=== PATIENT | female | born 2005 | race Caucasian/White ===

== ENCOUNTER 2023-01-01 15:24 | Emergency (ER) | payer OTHER, SELFPAY ==
--- NOTE | ~2023-01-01 | XR_ITS ---
EXAMINATION: XR chest 2V 01/01/2023 16:27 INDICATION: Shortness of breath. Diminished breath sounds. Low oxygen saturation. PROCEDURE: 2 view chest COMPARISON: No prior studies for comparison. FINDINGS: The lungs are clear. The cardiomediastinal silhouette is within normal limits. There are no pleural effusions. There is no pneumothorax suspected. IMPRESSION: 1: NO ACUTE CARDIOPULMONARY DISEASE. Reviewed, dictated and finalized at location A.
[2023-01-01 15:30] VITALS: BP 144/50; PULSE 121; RESP 22; TEMP 36.6; O2SAT 96
--- NOTE | 2023-01-01 15:32 | ED.URI ---
HPI - URI/Sore Throat General Chief Complaint: Upper Respiratory Infection Stated Complaint: sore throat/chest congestion Source: patient, family and RN notes reviewed History of Present Illness HPI Narrative: 17 yo F presents to urgent care with mom at side. Pt states she has been congested and coughing x 3 days. Pt reports shortness of breath and her mom states she is panting for air sometimes. Pt states she has been stuffy for the last month but her congestion worsened these last 3 days. Reports a sore throat and chest pain with deep inhalation. Pt denies any fevers, chills, vomiting, diarrhea, ear pain, leg pain or swelling. Pt admits to vaping and smoking an occasional cigarette. Pt took ibuprofen at home for her symptoms. Related Data Home Medications Medication Instructions Recorded Confirmed No Home Medications 01/01/23 01/01/23 Allergies Allergy/AdvReac Type Severity Reaction Status Date / Time No Known Allergies Allergy Unknown Verified 01/01/23 15:40 Review of Systems Review of Systems: Pertinent positives and pertinent negatives per HPI. PMFSH Comments At the time of my signature, I reviewed and agree with the nursing past medical, surgical, social, and family history. There is no relevant family history pertinent to the patient complaint. Exam Narrative: GENERAL: This is a well-nourished, well-developed patient, in no apparent distress. HEAD: normocephalic, atraumatic. EYES: Sclera clear/white. Vision is grossly intact. EARS: External ears normal, auditory canals clear and without drainage. Hearing grossly intact. NOSE: External nose normal with no obvious nasal discharge, nares without redness, no rhinorrhea. THROAT: Mucous membranes moist, posterior pharynx clear. NECK: Neck supple, non-tender without lymphadenopathy, masses or thyromegaly. CARDIOVASCULAR: Tachycardia RESPIRATORY: Diminished breath sounds bilaterally. pt talking in complete, but short, sentences. Pt in semi-tripod position. GASTROINTESTINAL: Abdomen soft, non-tender, nondistended. Bowel sounds are active. No hepato-splenomegaly, or palpable masses. No guarding. SKIN: warm, intact with no suspicious lesions or rash, good texture and turgor. NEURO: awake, alert, and oriented to person, place and time. There were no obvious focal neurologic abnormalities. EXTREMITIES: No clubbing, cyanosis, or edema. No joint tenderness, effusion, or edema noted. BACK: Nontender without deformity or crepitus. No flank tenderness. Course Course Level of Care: Express Care Visit Vital Signs Vital signs: Vital Signs Temperature 97.9 F 01/01/23 15:30 Pulse Rate 121 H 01/01/23 15:30 Respiratory Rate 22 H 01/01/23 15:30 Blood Pressure 144/50 H 01/01/23 15:30 Pulse Oximetry 96 01/01/23 15:30 Oxygen Delivery Room Air 01/01/23 15:30 Temperature 97.9 F 01/01/23 15:30 Pulse Rate 121 H 01/01/23 15:30 Respiratory Rate 22 H 01/01/23 15:30 Blood Pressure 144/50 H 01/01/23 15:30 Pulse Oximetry 96 01/01/23 15:30 Oxygen Delivery Room Air 01/01/23 15:30 Reviewed MDM - URI/Sore Throat MDM Narrative Medical decision making narrative: Discussed with pt the reasons for recommendation for ER transfer. PE needs to be ruled out due to pt's tachycardia and persistent SOB. Pt states no change in respiratory status post respiratory treatment and steroids. Pt reluctantly agreed to go with mom at side. Pt was informed of dangers of leaving AMA if she has a PE. PERC score=1 Report called to [facility] and Yulissa WILDER accepted pt for Dr. Little. Pt is stable. Lab Data Labs: Strep Screen Presumptive Negative *(Reference Range: Negative)* Imaging Data Radiologist's impression: [facility] [address] [place] [address] XRay Report Signed Patient: Gilda Bess : 2005 MR#: [id number]
[2023-01-01] MEDS: predniSONE 20 MG TABLET 60 MG PO (15:59)
[2023-01-01] MEDS: IPRATROPIUM BR 0.02% INH SOLN 0.5 MG/2.5 ML VIAL INHALATION (16:00)
[2023-01-01] MEDS: ALBUTEROL SULFATE NEB 2.5 MG/3 ML INH INHALATION (16:00)
--- NOTE | 2023-01-01 16:20 | PC.NURSE ---
AMBULATED TO XRAY AND SPO2=94% WITH HEART RATE =128/MINUTE
== END 2023-01-01 16:59 | disposition short-term general hospital (02) ==
PROVIDERS: Emergency Provider Nurse Practitioner Family; PCP Pediatrics
DX: R06.00 Dyspnea, unspecified (principal); R00.0 Tachycardia, unspecified
CPT/HCPCS: 71046; 87081; 87880; 94640; 99213; G0463; J7512

== ENCOUNTER 2023-01-01 17:50 | Emergency (ER) | payer OTHER, SELFPAY ==
[2023-01-01] VITALS (14 sets, daily range): BP systolic 128; BP diastolic 71–74; PULSE 101–126; RESP 20–27; TEMP 37.5; O2SAT 92–97
--- NOTE | 2023-01-01 18:05 | ED.SOB ---
HPI - SOB/Dyspnea General Chief Complaint: Shortness of Breath/Dyspnea Stated Complaint: rule out blood clot Source: patient Mode of arrival: ambulatory Limitations: no limitations History of Present Illness HPI Narrative: 17-year-old female, smoker/ vapes/ marijuana user with no significant past medical history presents to the ER with 3 day history of -- cough with mucopurulent sputum -- shortness of breath -- audible wheezing no fever or chills no chest pain no leg swelling no prior history of bronchitis /asthma has nasal congestion/ sore throat patient is being referred by Urgent Care and with [facility]. She had an x-ray of the chest which was unremarkable. She had a negative strep test. MD elicited complaint: shortness of breath and cough Onset (ago): day(s) ( symptoms started 3 days ago) Context: recent illness Severity: moderate Exacerbating factors: nothing Relieving factors: nothing Associated symptoms: cough, wheezing, sputum production, diaphoresis and chest congestion Treatment prior to arrival: none Related Data Allergies Allergy/AdvReac Type Severity Reaction Status Date / Time No Known Allergies Allergy Unknown Verified 01/01/23 15:40 Review of Systems Review of Systems: All systems reviewed & are unremarkable except as noted in HPI and below Constitutional: Constitutional: Reports as per HPI and Reports no additional constitutional complaints Eyes: Eyes: Reports as per HPI and Reports no additional eye complaints ENT: Reports system reviewed and no additional complaints, except as documented and Reports as per HPI Cardiovascular: Cardiovascular: Reports as per HPI and Reports no additional cardiovascular complaints Respiratory: Respiratory: Reports as per HPI, Reports no additional respiratory complaints, Reports chest congestion, Reports cough, Reports dyspnea and Reports wheezing Gastrointestinal: Gastrointestinal: Reports as per HPI Comments: no abdominal pain. No vomiting or diarrhea Musculoskeletal: Musculoskeletal: Reports no additional musculoskeletal complaints and Reports as per HPI Integumentary/Breasts: Skin/Breast: Reports system reviewed and no additional complaints, except as docu and Reports as per HPI Neurologic: Reports system reviewed and no additional complaints, except as documented and Reports as per HPI Psychiatric: Psychiatric: Reports no additional psychiatric complaints and Reports as per HPI Endocrine: Endocrine: Reports no additional endocrine complaints and Reports as per HPI Hematologic/Lymphatic: Hematologic/Lymphatic: Reports no additional hematologic/lymphatic complaints and Reports as per HPI Allergic/Immunologic: Allergic/Immunologic: Reports no additional allergic/immunologic complaints and Reports as per HPI [facility] Social History Social History (Updated 01/01/23 @ 18:20 by Ebenezer Little MD) Social History: Smoker. vapes. marijuana user Exam Const: General: diaphoretic Nutritional Appearance: obese Orientation/consciousness: patient oriented x3 Limitations: no limitations HENMT: Head: normal to inspection Ears: external ears normal Face/Nose/Sinus: Normal external nose present Face and sinus: normal facial exam Throat: posterior oropharynx normal Eyes: Conjunctivae: conjunctivae normal Pupils: Equal, round and reactive pupils present EOM: EOMs intact bilaterally Direct Ophthalmoscopy: no photophobia Neck: Neck: normal visual inspection, no lymphadenopathy and no meningeal signs Chest: Chest palpation & inspection: normal inspection of the chest Resp: Auscultation: wheezes and diminished lung sounds Cardio: Rate: regular rate Rhythm: regular rhythm GI: GI Palp: Yes Soft to palpation Auscultation: normal bowel sounds Other: no tenderness/ rigidity/rebound : General: Yes no CVA tenderness Back/Spine/Pelvis: Back: no CVA tenderness Skin: General skin exam: normal color Rashes: no rashes Wounds: no wounds N
--- NOTE | 2023-01-01 18:21 | ECG_ITS ---
Measurements Intervals [place] Rate: 103 P: 61 AL: 132 QRS: 32 QRSD: 84 T: 19 QT: 336 QTc: 441 Interpretive Statements SINUS TACHYCARDIA BORDERLINE T WAVE ABNORMALITY- INFERIOR LEADS BASELINE WANDER- I, II, III BORDERLINE ECG NO PREVIOUS ECG AVAILABLE FOR COMPARISON Electronically Signed On 01-01-2023 21:19:09 CDT by Chris Rodas D.O.
[2023-01-01] MEDS: IPRATROPIUM 0.5 MG/ALBUTEROL SULFATE 2.5 MG AMPUL.NEB 3 ML INHALATION (18:36)
[2023-01-01 18:45] LABS: Base Excess ABG -1.2 mmol/L (0-2); HCO3 ABG 21.7 mmol/L (23-29); Oxygen Content ABG 18.4 %vol (16.0-22.0); Oxygen Saturation ABG 93.2 % (95-97); Oxyhemoglobin 92.4 % (94-100); PCO2 ABG 31.3 mmHg (35-45); PO2 ABG 63.3 mmHg (80-90); Total Hemoglobin 14.2 g/dL (12.0-18.0); pH ABG 7.46 (7.35-7.45)
[2023-01-01 18:52] LABS: Basophils Absolute Auto 0.04 K/mm3 (0.00-0.10); Basophils Percent Auto 0.3 % (0.0-1.0); Eosinophils Absolute Auto 0.18 K/mm3 (0.02-0.50); Eosinophils Percent Auto 1.2 % (1.0-6.0); Hematocrit 42.4 % (35.0-49.0); Hemoglobin 13.6 g/dL (12.0-15.0); Immature Granulocyte Absolute 0.07 K/mm3 (0.00-0.00); Immature Granulocyte Percent A 0.5 % (0.0-0.0); Lymphocytes Absolute Auto 0.75 K/mm3 (1.10-4.50); Lymphocytes Percent Auto 4.9 % (18.0-42.0); Mean Corpuscular HGB Conc 32.1 g/dL (32.0-36.0); Mean Corpuscular Hemoglobin 27.3 pg (27.0-31.0); Mean Corpuscular Volume 85.1 fL (78.0-102.0); Mean Platelet Volume 10.2 fl (9.2-11.8); Monocytes Absolute Auto 0.52 K/mm3 (0.10-0.90); Monocytes Percent Auto 3.4 % (2.0-11.0); Neutrophils Absolute Auto 13.7 K/mm3 (1.7-7.2); Neutrophils Percent Auto 89.7 % (50.0-70.0); Platelet Count Result 324 K/mm3 (150-420); Red Blood Count 4.98 M/mm3 (4.20-5.40); Red Cell Distribution Width 13.4 % (11.6-14.4); White Blood Count 15.3 K/mm3 (4.8-10.8)
--- NOTE | 2023-01-01 19:00 | PC.NURSE ---
report to tez ryan
[2023-01-01 19:02] LABS: Bilirubin Urine Negative (Negative); Blood Urine Negative (Negative); Color Urine Yellow (Yellow); Glucose Urine UA Negative (Negative); Ketones Urine Trace (Negative); Leukocyte Esterase Ur Negative LEU/UL (Negative); Nitrate Urine Negative (Negative); Protein Urine Negative (Negative); Specific Grav Ur 1.025 (1.010-1.020)
[2023-01-01 19:05] LABS: Device ROOM AIR; Modified Allen's Test Pass; Site Drawn RIGHT RADIAL
[2023-01-01 19:07] LABS: Pregnancy On Board Control Positive; Urine Pregnancy Test Negative
[2023-01-01 19:08] LABS: Lactic Acid Reflex 1.4 mmol/L (0.4-2.0)
[2023-01-01 19:10] LABS: D Dimer 0.38 mg/L (0.19-0.50); INR 0.9; Partial Thromboplastin Time 28.5 SEC (23.90-30.70); Prothrombin Time 10.4 Seconds (9.50-12.10)
[2023-01-01 19:13] LABS: Add Urine Microscopic? YES; Amorphous Sediment Urine Few; Appearance Urine Cloudy (Clear); Mucus Urine Heavy /lpf; Squamous Epithelial Cell Urine Many /hpf (Few); WBC Urine 0-3 /hpf (0-3)
[2023-01-01 19:15] LABS: Alanine Aminotransferase 49 U/L (14-59); Albumin Level 3.9 g/dL (3.4-5.0); Alkaline Phosphatase 103 U/L (50-130); Anion Gap 11 mmol/L (8-16); Aspartate Amino Transferase 22 U/L (15-37); Bilirubin,Total 0.3 mg/dL (0.00-1.00); Blood Urea Nitrogen 7 mg/dL (7-18); Calcium 9.3 mg/dL (8.5-10.1); Carbon Dioxide 25 mmol/L (21-32); Chloride 101 mmol/L (98-108); Estimated CRCL calculation 147 ml/min; Estimated Glomerular Filt Rate > 60; Glucose 118 mg/dL (70-99); NT Pro B Type Natriuretic Pept 30 pg/mL (0-125); Osmolality Calculated 283 mOsm/kg (285-295); Potassium 3.8 mmol/L (3.5-5.1); Sodium 137 mmol/L (136-145); Thyroid Stimulating Hormone 0.73 uIU/mL (0.52-4.13)
[2023-01-01 19:16] LABS: Troponin I < 4.0 ng/L (0.00-60.4)
--- NOTE | 2023-01-01 19:20 | PC.NURSE ---
Pt resting without complaints given expected timeframe for results. Pt voices no new needs at this time. Call light in reach.
[2023-01-01 19:31] LABS: Influenza A QL RT-PCR Negative (Negative); Influenza B QL RT-PCR Negative (Negative); RSV RNA, RT-PCR Negative (Negative); SARS-CoV-2 RNA PCR Negative (Negative)
[2023-01-01] MEDS: ALBUTEROL SULFATE NEB 2.5 MG/3 ML INH INHALATION (20:04)
== END 2023-01-01 20:18 | disposition home or self-care (01) ==
LOC: CHSED 19:59
PROVIDERS: Emergency Provider Internal Medicine Critical Care Medicine; PCP Pediatrics
DX: J20.9 Acute bronchitis, unspecified (principal); F17.219 Nicotine dependence, cigarettes, with unspecified nicotine-induced disorders; F12.90 Cannabis use, unspecified, uncomplicated; Z20.822 Contact with and (suspected) exposure to COVID-19
CPT/HCPCS: 36415; 36600; 80053; 81001; 81025; 82805; 83605; 83880; 84443; 84484; 85025; 85380; 85610; 85730; 87637; 93005; 94640; 99284

== ENCOUNTER 2023-07-17 10:18 | Emergency (ER) | payer OTHER, SELFPAY ==
[2023-07-17 10:49] VITALS: BP 147/75; PULSE 95; RESP 20; TEMP 36.8; O2SAT 100
--- NOTE | 2023-07-17 11:41 | ED.EAR ---
HPI - Ear Problem General Chief complaint: Ear Stated complaint: Right Ear Pain Time Seen by Provider: 07/17/23 11:32 Source: patient and RN notes reviewed Mode of arrival: ambulatory Limitations: no limitations History of Present Illness HPI Narrative: Patient presents today complaining of right ear pain x2 days with decreased hearing. Denies drainage. Currently rates her pain 6/10 and has tried Tylenol and [id number] ear drops without relief. Denies recent illness. Related Data Allergies Allergy/AdvReac Type Severity Reaction Status Date / Time No Known Allergies Allergy Unknown Verified 07/17/23 10:58 Review of Systems Review of Systems: CONSTITUTIONAL: Denies body aches, fever, chills, or sweats. EYES: Denies visual changes, redness, or discharge. ENT: Denies rhinorrhea, congestion, sore throat. + right ear pain, decreased hearing CARDIOVASCULAR: Denies chest pain, palpitations, or edema. RESPIRATORY: Denies cough or dyspnea. GASTROINTESTINAL: Denies abdominal pain, nausea, vomiting, or diarrhea. GENITOURINARY: Denies dysuria or hematuria. SKIN: Denies rash, itching, or wounds. MUSCULOSKELETAL: Denies back pain, joint pain, or myalgia. NEUROLOGIC: Denies headache, numbness, tingling, or weakness. PSYCH: Denies depression or anxiety. [facility] Social History Social History Social History: Smoker. vapes. marijuana user Comments At time of signature, I have reviewed and agree with nursing past medical, surgical, social and family history unless otherwise noted. Please see nursing chart for further information. There is no relevant family history pertinent to the presenting complaint Exam Narrative: GENERAL: Well-appearing, well-nourished, and in no acute distress. HEAD: Normocephalic, atraumatic. EYES: EOMI. No redness or drainage. Conjunctivae normal. ENT: Mucous membranes pink and moist. Right ear: No movement or tragal tenderness. Canal mildly erythematous without edema. There is a moderate amount of white moist material in the canal that is occluding visualization of the TM. Left ear normal. NECK: Normal AROM. CHEST: No respiratory distress. EXTREMITIES: Normal range of motion. No edema. SKIN: Warm, dry, no rash. Capillary refill normal. Normal skin turgor. NEURO: No focal deficits. Alert and oriented x3. Gait steady. PSYCH: Normal affect. No signs of depression or anxiety. Course Course Level of Care: Express Care Visit Vital Signs Vital signs: Vital Signs Temperature 98.2 F 07/17/23 10:49 Pulse Rate 95 07/17/23 10:49 Respiratory Rate 20 07/17/23 10:49 Blood Pressure 147/75 H 07/17/23 10:49 Pulse Oximetry 100 07/17/23 10:49 Oxygen Delivery Room Air 07/17/23 10:49 Temperature 98.2 F 07/17/23 10:49 Pulse Rate 95 07/17/23 10:49 Respiratory Rate 20 07/17/23 10:49 Blood Pressure 147/75 H 07/17/23 10:49 Pulse Oximetry 100 07/17/23 10:49 Oxygen Delivery Room Air 07/17/23 10:49 Reviewed Medical Decision Making MDM Narrative Medical decision making narrative: Patient does have some erythema to the ear canal, but the TM is occluded with white material. She likely has an otitis externa, but otitis media cannot be ruled out. Will treat for both with Ciprodex and amoxicillin. Patient agrees with plan. Anticipatory guidance given. Differential Diagnosis Differential Diagnosis: Otitis media, otitis externa, ruptured TM, serous otitis, cerumen impaction Vital Signs Vital Signs: Vital Signs Temperature 98.2 F 07/17/23 10:49 Pulse Rate 95 07/17/23 10:49 Respiratory Rate 20 07/17/23 10:49 Blood Pressure 147/75 H 07/17/23 10:49 Pulse Oximetry 100 07/17/23 10:49 Oxygen Delivery Room Air 07/17/23 10:49 Temperature 98.2 F 07/17/23 10:49 Pulse Rate 95 07/17/23 10:49 Respiratory Rate 20 07/17/23 10:49 Blood Pressure 147/75 H 07/17/23 10:49 P
== END 2023-07-17 11:51 | disposition home or self-care (01) ==
PROVIDERS: Emergency Provider Nurse Practitioner; PCP Pediatrics
DX: H60.501 Unspecified acute noninfective otitis externa, right ear (principal); F17.290 Nicotine dependence, other tobacco product, uncomplicated
CPT/HCPCS: 99213; G0463

== ENCOUNTER 2023-07-25 09:19 | Emergency (ER) | payer OTHER, SELFPAY ==
[2023-07-25 09:24] VITALS: BP 157/81; PULSE 115; RESP 16; TEMP 37.3; O2SAT 100
--- NOTE | 2023-07-25 10:38 | ED.EAR ---
HPI - Ear Problem General Chief complaint: Ear Stated complaint: ear pain Time Seen by Provider: 07/25/23 10:38 Source: patient, RN notes reviewed and old records reviewed Mode of arrival: ambulatory Limitations: no limitations History of Present Illness HPI Narrative: 18 year old female with complaints of right ear pain with thick brownish drainage noted from right ear, pressure feeling and decreased hearing. Patient reports that she was seen here 8 days ago and was treated with ear drops and antibiotics orally. Patient reports that pain has decreased some but can't hear from right ear. Patient reports no fevers or any other symptoms. MD Complaint: ear pain Location: right ear Severity: moderate Discharge from ear: Reports yes - purulent (brownish thick) Treatment prior to arrival: other (treated with oral antibiotic and ear drops RX 8 days ago.) Related Data Allergies Allergy/AdvReac Type Severity Reaction Status Date / Time No Known Allergies Allergy Unknown Verified 07/17/23 10:58 Review of Systems Review of Systems: CONSTITUTIONAL: Denies malaise, chills, sweats, or fever. EYES: Denies visual changes, redness, or discharge. ENT: Reports no rhinorrhea, congestion, no sinus pain, right otalgia and no sore throat. CARDIOVASCULAR: Denies chest pain, palpitations, or edema. RESPIRATORY: Reports no cough.? Denies dyspnea. GASTROINTESTINAL: Denies abdominal pain, nausea, vomiting, diarrhea SKIN: Denies rash or itching. MUSCULOSKELETAL: Denies myalgia. NEUROLOGIC: Denies headache. All systems reviewed & are unremarkable except as noted in HPI and below PMFSH Past Medical History Medical History (Updated 07/26/23 @ 13:39 by Elena Bonilla NP) Strep throat Surgical History Surgical History (Updated 07/26/23 @ 13:37 by Elena Bonilla NP) H/O skin graft from grewal Social History Social History Social History: Smoker. vapes. marijuana user Comments At time of signature, agree with nursing past medical, surgical, social and family history. There is no relevant family history pertinent to the presenting complaint Exam Narrative: GENERAL: Well-appearing, well-nourished, and in no acute distress. HEAD: Normocephalic EYES: PERRLA, conjunctivae clear ENT: Nares clear, turbinates edematous and erythematous, clear discharge. Mucous membranes moist. Right ear canal red, white material in ear covering TM unable to visual TM. Left TM pearly victor with dull light reflex; no tragal tenderness no drainage noted from ear on exam.. Oropharynx erythematous without lesions. Tonsils not enlarged and without exudate, no drooling, no hoarseness, no trismus, uvula midline. NECK: Supple. No lymphadenopathy CHEST: Clear to auscultation, breath sounds equal. No wheezing, rhonchi, rales, or stridor. No respiratory distress, speaks in full sentences.SAO2 100% on room air HEART: Regular rate and rhythm. No murmur heard. SKIN: Warm, dry, no rash. NEURO: Alert and oriented x3. PSYCH: Normal mood and affect Course Course Emergency Course: Patient is aware of diagnosis, understands and agrees to treatment plan.? Anticipatory guidance given.? Patient agrees to follow-up as directed and is aware of reasons to seek care at the emergency department. Portions of this record may have been created with voice recognition software Level of Care: Express Care Visit Vital Signs Vital signs: Vital Signs Temperature 37.3 C 07/25/23 09:24 Pulse Rate 115 H 07/25/23 09:24 Respiratory Rate 16 07/25/23 09:24 Blood Pressure 157/81 H 07/25/23 09:24 Pulse Oximetry 100 07/25/23 09:24 Oxygen Delivery Room Air 07/25/23 09:24 Temperature 37.3 C 07/25/23 09:24 Pulse Rate 115 H 07/25/23 09:24 Respiratory Rate 16 07/25/23 09:24 Blood Pressure 157/81 H 07/25/23 09:24 Pulse Oximetry 100 07/25/23 09:24 Oxygen Delivery Room
== END 2023-07-25 10:59 | disposition home or self-care (01) ==
PROVIDERS: Emergency Provider Registered Nurse; PCP Pediatrics
DX: H60.91 Unspecified otitis externa, right ear (principal)
CPT/HCPCS: 99213; G0463

== ENCOUNTER 2023-11-14 19:25 | Emergency (ER) | payer SELFPAY ==
[2023-11-14 19:32] VITALS: BP 125/54; PULSE 89; RESP 16; TEMP 36.5; O2SAT 99
--- NOTE | 2023-11-14 19:52 | ED.WOUNDLAC ---
HPI - Wound/Laceration General Chief Complaint: Wound/Laceration Stated Complaint: left middle finger cut Time Seen by Provider: 11/14/23 19:35 Source: patient, family, RN notes reviewed and old records reviewed Mode of arrival: ambulatory Limitations: no limitations History of Present Illness HPI narrative: 18 year old female who tried to open a metal can with knife and cut her left middle finger just prior to arrival. Patient reports that her tetanus is up to date Patient has avulsion of tissue to the medial aspect of distal finger and of nail with difficulty getting bleeding to slop despite pressure dressing, Patient reports throbbing pain to site. Onset (ago): minute(s) (just prior to arrival) Location: other (left middle finger) Place: home Patient tetanus UTD: Yes Treatments prior to arrival: bandage Related Data Allergies Allergy/AdvReac Type Severity Reaction Status Date / Time No Known Allergies Allergy Unknown Verified 11/14/23 19:29 Review of Systems Review of Systems: CONSTITUTIONAL: Denies fever, chills, or sweats. CARDIOVASCULAR: Denies chest pain, palpitations, or edema. RESPIRATORY: Denies cough or dyspnea. SKIN: Reports avulsion laceration to the medial aspect of distal left middle finger and to side of nail MUSCULOSKELETAL: Denies musculoskeletal pain NEUROLOGIC: Denies numbness, or weakness. All systems reviewed & are unremarkable except as noted in HPI and below PMFSH Past Medical History Medical History (Updated 11/15/23 @ 06:58 by Elena Bonilla NP) Strep throat Surgical History Surgical History (Updated 07/26/23 @ 13:37 by Elena Bonilla NP) H/O skin graft from grewal Social History Social History (Updated 11/15/23 @ 06:48 by Elena Bonilla NP) Social History: Smoker. vapes. marijuana user Living arrangements: with family Gender identity (if verbalized by the patient): Female Comments At time of signature, agree with nursing past medical, surgical, social and family history. There is no relevant family history pertinent to the presenting complaint Exam Narrative: GENERAL: Well-appearing, well-nourished, and in no acute distress. HEAD: Normocephalic, atraumatic. NECK: Supple. no lymphadenopathy CHEST: Clear to auscultation. No respiratory distress.SAO2 99% on room air HEART: Regular rate and rhythm. No murmur heard. Normal peripheral pulses. EXTREMITIES: Normal range of motion. No edema. SKIN: Warm, dry, no rash. Reports avulsion type of laceration to the medial aspect of distal left middle finger with nail involvement full mobility of finger noted, denies any tingling o numbness, strong left radial pulse, see procedure note. NEURO: No focal deficits. Alert and oriented x3. Course Course Level of Care: Express Care Visit Vital Signs Vital signs: Vital Signs Temperature 36.5 C 11/14/23 19:32 Pulse Rate 89 11/14/23 19:32 Respiratory Rate 16 11/14/23 19:32 Blood Pressure 125/54 L 11/14/23 19:32 Pulse Oximetry 99 11/14/23 19:32 Oxygen Delivery Room Air 11/14/23 19:32 Temperature 36.5 C 11/14/23 19:32 Pulse Rate 89 11/14/23 19:32 Respiratory Rate 16 11/14/23 19:32 Blood Pressure 125/54 L 11/14/23 19:32 Pulse Oximetry 99 11/14/23 19:32 Oxygen Delivery Room Air 11/14/23 19:32 Procedures Laceration distal middle finger: Date: 11/14/23 Time: 19:50 Site: hand (distal medial third finger with nail involvement) Side (If applicable): left Size (cm): 1 Description: other (avulsion of skin and nail) Depth: simple, single layer Local Anesthetic: none Pre-repair: irrigated extensively and other (cleansed with [place]) ====== Skin Level ====== Skin layer closed with: other (Surgicel applied to wound) ====== Subcutaneous Layer ====== ====== Muscle Layer ====== ====== Tendon Layer ====== Dressing: Wound covered wi
== END 2023-11-14 20:22 | disposition home or self-care (01) ==
PROVIDERS: Emergency Provider Registered Nurse; PCP Pediatrics
DX: S61.303A Unspecified open wound of left middle finger with damage to nail, initial encounter (principal); W26.0XXA Contact with knife, initial encounter; F17.200 Nicotine dependence, unspecified, uncomplicated; F17.290 Nicotine dependence, other tobacco product, uncomplicated; F12.90 Cannabis use, unspecified, uncomplicated
CPT/HCPCS: 99213; G0463